=== PATIENT | female | born 1960 | race Caucasian/White ===

== ENCOUNTER → 2019-09-07 10:17 | Outpatient (BNVA) | payer OTHER, SELFPAY | PROVIDERS: PCP Nurse Practitioner Family; Visit Provider Nurse Practitioner Family | DX: Z00.00 Encounter for general adult medical examination without abnormal findings (principal); Z13.1 Encounter for screening for diabetes mellitus; Z13.220 Encounter for screening for lipoid disorders; Z12.39 Encounter for other screening for malignant neoplasm of breast | CPT/HCPCS: 80048; 80061 ==

== ENCOUNTER → 2020-01-12 09:43 | Outpatient (BNVA) | payer OTHER, SELFPAY | PROVIDERS: PCP Nurse Practitioner Family; Visit Provider Nurse Practitioner Family | DX: E78.5 Hyperlipidemia, unspecified (principal); Z51.81 Encounter for therapeutic drug level monitoring | CPT/HCPCS: 80053; 80061; 82550 ==

== ENCOUNTER → 2020-09-04 11:08 | Outpatient (BNVA) | payer OTHER, SELFPAY | PROVIDERS: PCP Nurse Practitioner Family; Visit Provider Specialist | DX: S52.502A Unspecified fracture of the lower end of left radius, initial encounter for closed fracture (principal); M25.532 Pain in left wrist; X58.XXXA Exposure to other specified factors, initial encounter | CPT/HCPCS: 73110 ==

== ENCOUNTER → 2020-09-12 08:21 | Outpatient (BNVA) | payer OTHER, SELFPAY | PROVIDERS: PCP Nurse Practitioner Family; Visit Provider Nurse Practitioner Family | DX: E78.5 Hyperlipidemia, unspecified (principal); Z51.81 Encounter for therapeutic drug level monitoring | CPT/HCPCS: 80053; 80061 ==

== ENCOUNTER → 2020-09-18 08:28 | Outpatient (BNVA) | payer OTHER, SELFPAY | PROVIDERS: PCP Nurse Practitioner Family; Visit Provider Nurse Practitioner Family | DX: M65.4 Radial styloid tenosynovitis [de Quervain] (principal); Z51.81 Encounter for therapeutic drug level monitoring; M25.50 Pain in unspecified joint | CPT/HCPCS: 80053; 86038; 86140; 86431 ==

== ENCOUNTER → 2020-10-13 13:25 | Outpatient (BNVA) | payer OTHER, SELFPAY | PROVIDERS: PCP Nurse Practitioner Family; Visit Provider Podiatrist Foot & Ankle Surgery | DX: M25.572 Pain in left ankle and joints of left foot (principal); M25.571 Pain in right ankle and joints of right foot | CPT/HCPCS: 73630 ==

== ENCOUNTER 2020-10-23 13:32 | Outpatient (CLI) | payer OTHER, SELFPAY ==
--- NOTE | 2020-10-23 14:15 | US_ITS ---
WS: [id number] THYROID ULTRASOUND (TI-RADS CRITERIA) History: Nontoxic goiter.. Technique: Ultrasound examination of the thyroid and adjacent soft tissues is performed. FINDINGS: Right lobe: 4.5 cm x 1.6 cm x 1.3 cm. Volume: 5.0 cm3. Normal size gland. There are a few scattered hypodensities which are probably colloid cyst. There is an additional hypoechoic nodule along the inferior thyroid. This may be external to the thyroid. Left lobe: 4.0 cm x 1.5 cm x 0.9 cm. Volume: 2.7 cm3. Normal size and echotexture. No significant or dominant nodules are present. Isthmus: 0.3 cm. NODULE: 1, inferior RIGHT Size: 0.9 x 0.7 x 1.1 cm Location: Inferior RIGHT Composition: Solid/almost completely solid (2) Echogenicity: Hypoechoic (2) Shape: Not taller than wide (0) Margins: Smooth (0) Echogenic foci: 0 ACR TI-RADS total points: 4 ACR TI-RADS risk category: TR4 4 US/US thyroid [id number] Impression: TR4 Recommendation:Follow-up ultrasound in one, 2, 3 and 5 years. If thyroid nodule(s) change on follow-up examinations the recommendations will be altered as necessary.
== END 2020-10-23 13:33 | disposition home or self-care (01) ==
PROVIDERS: PCP Nurse Practitioner Family; Visit Provider Nurse Practitioner Family
DX: E04.9 Nontoxic goiter, unspecified (principal)
CPT/HCPCS: 76536

== ENCOUNTER → 2020-11-16 09:59 | Outpatient (BNVA) | payer OTHER, SELFPAY | PROVIDERS: PCP Nurse Practitioner Family; Referring Provider Nurse Practitioner Family; Visit Provider Internal Medicine | DX: E04.1 Nontoxic single thyroid nodule (principal); E21.3 Hyperparathyroidism, unspecified; E83.52 Hypercalcemia; Z78.0 Asymptomatic menopausal state | CPT/HCPCS: 99204 ==

== ENCOUNTER → 2020-11-21 08:29 | Outpatient (BNVA) | payer OTHER, SELFPAY | PROVIDERS: PCP Nurse Practitioner Family; Visit Provider Internal Medicine | DX: E83.52 Hypercalcemia (principal); E04.1 Nontoxic single thyroid nodule | CPT/HCPCS: 82310; 83970 ==

== ENCOUNTER → 2021-02-20 08:38 | Outpatient (BNVA) | payer OTHER, SELFPAY | PROVIDERS: PCP Nurse Practitioner Family; Visit Provider Podiatrist Foot & Ankle Surgery | DX: M19.072 Primary osteoarthritis, left ankle and foot (principal) | CPT/HCPCS: 73630 ==

== ENCOUNTER 2021-03-12 08:00 | Outpatient (CLI) | payer OTHER, SELFPAY ==
--- NOTE | 2021-03-12 08:00 | MR_ITS ---
WS: [id number] MRI LEFT FOOT with and without CONTRAST. COMPARISON: LEFT foot radiograph 02/20/2021 Multiplanar, multisequence imaging is performed with and without contrast. Sagittal and axial T1 fat sat sequences post-MultiHance 20 cc IV. Marker is placed in the area of pain which corresponds to the second metatarsal head. No marrow edema or fracture. No healing fracture. Cortex and medullary portion of the bone are intact. Subchondral c yst versus erosion measuring 5.2 mm at the base of the second metatarsal. There is edema between the intermediate cuneiform and proximal second metatarsal. Probably related to arthritis. No significant amount of fluid. There is an additional subchondral cyst or erosion involving the base of the third m etatarsal. The remaining proximal metatarsals are negative. There is significant osteophyte formation and bone hypertrophy along the dorsal surface of the midfoo t in the area of soft tissue edema and marrow edema. On the postcontrast imaging there is some very mild enhancement at the second tarsometatarsal articul ation. MR/MR foot LT wo/w con [id number] IMPRESSION: 1. Degenerative changes in the midfoot with joint space narrowing, subchondral cystic changes and cortical erosions and hypertrophic bone formation. Inflamma tory changes with mild enhancement are most significant between the cuneiform i ntermedius and proximal second metatarsal. Smaller erosion or subchondral cyst involving the proximal third metatarsal. 2. No fractures.
[2021-03-12] MEDS: gadobenate dimeglumine 20 mL vial IV (09:43)
== END 2021-03-12 08:01 | disposition home or self-care (01) ==
LOC: RADSHAW 08:02
PROVIDERS: PCP Nurse Practitioner Family; Visit Provider Podiatrist Foot & Ankle Surgery
DX: M79.672 Pain in left foot (principal)
CPT/HCPCS: 73720; A9577

== ENCOUNTER 2021-04-10 10:27 | Outpatient (CLI) | payer OTHER, SELFPAY ==
--- NOTE | 2021-04-10 11:22 | XR_ITS ---
WS: [id number] SCREENING DEXA SCAN [employer] CLINICAL INFORMATION: post menopausal COMPARISON: None. FINDINGS: The L1-L4 bone mineral density measures 1.344 g/cm2. This corresponds to a T score score of 1.4 and Z score of 1.6. Left femoral neck bone mineral density measures 0.990 g/cm2. This corresponds to a T score of -0.1 an d Z score of 0.0. Right femoral neck bone mineral density measures 0.945 g/cm2. This corresponds to a T score -0.5of an d Z score of -0.3. Mean femoral neck bone mineral density measures 0.968 g/cm2. This corresponds to a T score of -0.3 an d Z score of -0.1. XR/XR DEXA axial skeleton* [id number] IMPRESSION: Normal bone mineralization. Patient's FRAX calculated 10 year probability for major osteoporotic fracture i s 13.4 % and osteoporotic hip fracture is 0.3%.
== END 2021-04-10 10:28 | disposition home or self-care (01) ==
LOC: RAD 10:32
PROVIDERS: PCP Nurse Practitioner Family; Visit Provider Internal Medicine
DX: Z78.0 Asymptomatic menopausal state (principal)
CPT/HCPCS: 77080

== ENCOUNTER → 2021-06-04 09:55 | Outpatient (BNVA) | payer OTHER, SELFPAY | PROVIDERS: PCP Nurse Practitioner Family; Visit Provider Internal Medicine | DX: E78.5 Hyperlipidemia, unspecified (principal) | CPT/HCPCS: 80053; 80061 ==

== ENCOUNTER → 2021-09-17 10:10 | Outpatient (BNVA) | payer OTHER, SELFPAY | PROVIDERS: PCP Nurse Practitioner Family; Visit Provider Internal Medicine | DX: E83.52 Hypercalcemia (principal) | CPT/HCPCS: 82310; 83970 ==

== ENCOUNTER → 2021-10-12 11:33 | Outpatient (BNVA) | payer OTHER, SELFPAY | PROVIDERS: PCP Nurse Practitioner Family; Visit Provider Nurse Practitioner Family | DX: E04.1 Nontoxic single thyroid nodule (principal); R03.0 Elevated blood-pressure reading, without diagnosis of hypertension | CPT/HCPCS: 80053; 84443 ==

== ENCOUNTER 2021-11-16 10:40 | Outpatient (CLI) | payer OTHER, SELFPAY ==
--- NOTE | 2021-11-16 11:00 | US_ITS ---
WS: [id number] THYROID ULTRASOUND (TI-RADS CRITERIA) History: Follow-up nodules.. Technique: Ultrasound examination of the thyroid and adjacent soft tissues is performed. FINDINGS: Right lobe: 5.0 cm x 1.3 cm x 1.2 cm. Volume: 4.1 cm3. Normal size gland. Dominant nodules hypoechoic in the inferior pole. There are a few scattered small hypoechoic colloid cysts. Lymph nodes: None. NODULE: Inferior, RIGHT. Size: 0.8 x 0.7 x 1.3 cm. Location: Inferior RIGHT Composition: Solid/almost completely solid (2) Echogenicity: Hypoechoic (2) Shape: Not taller than wide (0) Margins: Smooth (0) Echogenic foci: None (0) ACR TI-RADS total points: 4 ACR TI-RADS risk category: TR4 Left lobe: 5.1 cm x 1.4 cm x 1.2 cm. Volume: 4.4 cm3. Normal size and echotexture. No significant or dominant nodules are present. Subcentimeter nodules ar e stable. Lymph nodes: None. Isthmus: 0.2 cm. US/US thyroid [id number] Impression: TR4 Recommendation:Continued yearly follow-up. Today's examination is a 1 year foll ow-up which is stable. Continue to follow-up in 2, 3 and 5 years. If thyroid nodule(s) change on follow-up examinations the recommendations will be altered as necessary.
== END 2021-11-16 10:41 | disposition home or self-care (01) ==
LOC: RAD 10:42
PROVIDERS: PCP Nurse Practitioner Family; Visit Provider Internal Medicine
DX: E04.1 Nontoxic single thyroid nodule (principal)
CPT/HCPCS: 76536

== ENCOUNTER → 2021-12-06 10:07 | Outpatient (BNVA) | payer OTHER, SELFPAY | PROVIDERS: PCP Nurse Practitioner Family; Visit Provider Internal Medicine | DX: E21.0 Primary hyperparathyroidism (principal) | CPT/HCPCS: 82310; 83970 ==

== ENCOUNTER 2022-04-23 13:52 | Outpatient (CLI) | payer OTHER, SELFPAY ==
--- NOTE | 2022-04-23 14:05 | XR_ITS ---
WS: [email or web address] Exam: XR chest 2V* [id number] Date/Time of Exam: 04/23/2022 2:13 PM Reason For Exam: J20.8 - Acute bronchitis due to other specified organisms No priors. The lungs are fully expanded. Areas of plaque atelectasis in the lingula. Normal cardiomediastinal si lhouette and regional bony elements. Old fracture of the proximal left humerus. XR/XR chest 2V* [id number] IMPRESSION: 1. Plaque atelectasis in the lingula. No acute cardiopulmonary process.
== END 2022-04-23 13:53 | disposition home or self-care (01) ==
LOC: RAD 13:56
PROVIDERS: PCP Nurse Practitioner Family; Visit Provider Nurse Practitioner Family
DX: J20.8 Acute bronchitis due to other specified organisms (principal); B96.89 Other specified bacterial agents as the cause of diseases classified elsewhere; J98.11 Atelectasis
CPT/HCPCS: 71046

== ENCOUNTER 2022-05-21 10:37 | Outpatient (CLI) | payer OTHER, SELFPAY ==
--- NOTE | 2022-05-21 10:50 | XR_ITS ---
WS: [email or web address] RIGHT KNEE: 3 VIEW(S) TECHNIQUE: AP, oblique(s) and lateral. HISTORY: M25.561 - Pain in right knee COMPARISON: None available. No fracture or dislocation. Moderate narrowing of the medial and patellofemoral compartments. Joint spaces are narrowed with hype rtrophic osteophytes. Mild soft tissue edema anterior to the knee. No soft tissue abnormality. XR/XR knee RT 3V* [id number] IMPRESSION: 1. Moderate narrowing of the medial and patellofemoral compartments from osteo arthritis. 2. No fracture.
== END 2022-05-21 10:38 | disposition home or self-care (01) ==
PROVIDERS: PCP Nurse Practitioner Family; Visit Provider Nurse Practitioner Family
DX: M17.11 Unilateral primary osteoarthritis, right knee
CPT/HCPCS: 73562

== ENCOUNTER → 2022-05-22 09:36 | Outpatient (BNVA) | payer OTHER, SELFPAY | PROVIDERS: PCP Nurse Practitioner Family; Visit Provider Nurse Practitioner Family | DX: E21.0 Primary hyperparathyroidism (principal); E83.52 Hypercalcemia; E04.1 Nontoxic single thyroid nodule; Z79.899 Other long term (current) drug therapy; M17.11 Unilateral primary osteoarthritis, right knee | CPT/HCPCS: 82310; 83970; 84439; 84443 ==

== ENCOUNTER → 2022-09-17 09:21 | Outpatient (BNVA) | payer OTHER, SELFPAY | PROVIDERS: PCP Nurse Practitioner Family; Visit Provider Nurse Practitioner Family | DX: I10 Essential (primary) hypertension (principal); E04.1 Nontoxic single thyroid nodule; E78.2 Mixed hyperlipidemia; E83.52 Hypercalcemia; Z00.00 Encounter for general adult medical examination without abnormal findings | CPT/HCPCS: 80053; 80061; 82310; 83970; 84439; 84443; 84481 ==

== ENCOUNTER 2022-10-22 08:35 | Outpatient (CLI) | payer OTHER, SELFPAY ==
--- NOTE | 2022-10-22 08:42 | MM_ITS ---
WS: [email or web address] BILATERAL SCREENING DIGITAL TOMOSYNTHESIS MAMMOGRAM WITH CAD HISTORY: SCREENING COMPARISON: 10/22/2021 Bilateral CC and MLO views with tomosynthesis and synthetic mammography submitted. Computer aided det ection analyzed. Breast composition: There are scattered areas of fibroglandular density. No suspicious masses, microc alcifications or architectural distortion. MM/[place] [id number] IMPRESSION: BI-RADS: 1-Negative FOLLOW UP: 1 Year Follow-up
== END 2022-10-22 08:36 | disposition home or self-care (01) ==
PROVIDERS: PCP Nurse Practitioner Family; Visit Provider Nurse Practitioner Family
DX: Z12.31 Encounter for screening mammogram for malignant neoplasm of breast (principal)
CPT/HCPCS: 77063; 77067

== ENCOUNTER → 2022-10-28 10:42 | Outpatient (BNVA) | payer OTHER, SELFPAY | PROVIDERS: PCP Nurse Practitioner Family; Visit Provider Specialist | DX: M17.0 Bilateral primary osteoarthritis of knee (principal) | CPT/HCPCS: 73560; 73565 ==

== ENCOUNTER 2022-12-31 08:48 | Outpatient (CLI) | payer OTHER, SELFPAY ==
--- NOTE | 2022-12-31 09:15 | US_ITS ---
WS: [email or web address] ULTRASOUND THYROID TECHNIQUE: Ultrasound of the thyroid. CLINICAL INFORMATION: Thyroid Nodule COMPARISON: 2021 FINDINGS: Thyroid: Right and left thyroid lobes are normal in size and echotexture. Right thyroid lobe: 4.6 cm x 1.1 cm x 1.7 cm Hypoechoic RIGHT thyroid nodule in the mid thyroid measuring 7.3 x 5.6 x 4.6 mm. Additional mixed echogenicity nodule inferior thyroid measuring 15.0 x 8.0 x 8.0 mm A few incidental tiny colloid cysts. Left thyroid lobe: 4.6 cm x 1.6 cm x 1.0 cm. Small subcentimeter nodules LEFT thyroid are stable. Isthmus: 0.2 mm. Cervical lymphadenopathy: None. US/US thyroid [id number] IMPRESSION: 1. No significant changes compared to November 16, 2021 2. Dominant nodule inferior RIGHT thyroid measuring 15.0 x 8.0 x 8.0 mm is unc hanged. Recommend continued annual ultrasound surveillance. 3. Additional bilateral subcentimeter thyroid nodules are stable. 4. A few incidental colloid cysts.
== END 2022-12-31 08:49 | disposition home or self-care (01) ==
PROVIDERS: PCP Nurse Practitioner Family; Visit Provider Internal Medicine
DX: E04.1 Nontoxic single thyroid nodule (principal); E21.0 Primary hyperparathyroidism
CPT/HCPCS: 76536

== ENCOUNTER → 2023-03-12 07:33 | Outpatient (BNVA) | payer OTHER, SELFPAY | PROVIDERS: PCP Nurse Practitioner Family; Visit Provider Podiatrist Foot & Ankle Surgery | DX: M67.472 Ganglion, left ankle and foot (principal) | CPT/HCPCS: 99213 ==

== ENCOUNTER → 2023-04-21 08:52 | Outpatient (BNVA) | payer OTHER, SELFPAY | PROVIDERS: PCP Nurse Practitioner Family; Visit Provider Nurse Practitioner Family | DX: E78.2 Mixed hyperlipidemia (principal); I10 Essential (primary) hypertension; E78.5 Hyperlipidemia, unspecified | CPT/HCPCS: 80053; 80061 ==

== ENCOUNTER 2023-10-14 09:17 | Outpatient (CLI) | payer OTHER, SELFPAY ==
--- NOTE | 2023-10-14 09:25 | XRR_ITS ---
PROCEDURE INFORMATION: Exam: XR Right Hip Exam date and time: 10/14/2023 9:37 AM Age: 63 years old Clinical indication: Hip pain; Right hip; Additional info: M25.551 - pain in right hip TECHNIQUE: Imaging protocol: Radiologic exam of the right hip. Views: 1 view hip with pelvis when performed. COMPARISON: No relevant prior studies available. FINDINGS: Bones/joints: Unremarkable. No acute fracture. No significant arthritic changes. No lytic or sclerotic lesion. Soft tissues: Unremarkable. XR/XR hip RT 2-3V wo/w pel* [id number] IMPRESSION: No acute findings.
== END 2023-10-14 09:18 | disposition home or self-care (01) ==
LOC: RAD 09:18
PROVIDERS: PCP Nurse Practitioner Family; Visit Provider Nurse Practitioner Family
DX: M25.551 Pain in right hip (principal)
CPT/HCPCS: 73502

== ENCOUNTER → 2023-11-10 09:34 | Outpatient (BNVA) | payer OTHER, SELFPAY | PROVIDERS: PCP Nurse Practitioner Family; Visit Provider Internal Medicine | DX: E78.2 Mixed hyperlipidemia (principal); E21.0 Primary hyperparathyroidism | CPT/HCPCS: 80053; 80061; 82310; 83970 ==

== ENCOUNTER 2023-11-20 12:26 | Outpatient (CLI) | payer OTHER, SELFPAY ==
--- NOTE | 2023-11-20 12:41 | XR_ITS ---
WS: [email or web address] Exam: XR lumbar spine 2-3V* [id number] Date/Time of Exam: 11/20/2023 12:56 PM Reason For Exam: M54.50 - Low back pain, unspecified No acute fracture or dislocation. Degenerative vacuum discs noted at L2-3 and L4-5. Degenerative retr olisthesis of L to on L3 of about 7 mm. There is also degenerative anterolisthesis of L3 on L4 of abo ut 4 mm. Facet arthropathy at all levels. Mid and lower thoracic scoliosis with RIGHT convexity. IMPRESSION: 1. Moderately advanced degenerative changes as discussed above. No acute fracture. 2. Degenerative anterolisthesis of L3 on L4 of about 4 mm. Degenerative retrolisthesis of L2 on L3 of about 7 mm.
== END 2023-11-20 12:27 | disposition home or self-care (01) ==
LOC: RAD 12:26
PROVIDERS: PCP Nurse Practitioner Family; Visit Provider Nurse Practitioner Family
DX: M47.896 Other spondylosis, lumbar region; M54.50 Low back pain, unspecified
CPT/HCPCS: 72100

== ENCOUNTER 2023-11-20 12:27 | Outpatient (CLI) | payer OTHER, SELFPAY ==
--- NOTE | 2023-11-20 13:18 | MM_ITS ---
WS: [email or web address] SCREENING DIGITAL TOMOSYNTHESIS MAMMOGRAM WITH CAD HISTORY: SCREEN COMPARISON: 10/22/2022, 10/22/2021 Bilateral CC and MLO with tomosynthesis views submitted. Synthetic mammography reviewed. Computer aid ed detection analyzed. Breast composition: There are scattered areas of fibroglandular density. No suspicious masses, microc alcifications or architectural distortion. IMPRESSION: MM/[place] [id number] BI-RADS: 1-Negative FOLLOW UP: 1 Year Follow-up
--- NOTE | 2023-11-20 13:44 | XR_ITS ---
WS: [email or web address] Exam: XR lumbar spine 2-3V* [id number] Date/Time of Exam: 11/20/2023 1:46 PM Reason For Exam: M54.50 - Low back pain, unspecified No acute fracture or dislocation. Degenerative vacuum discs at L2-3 and L4-5. Facet arthropathy at al l levels. Dextroscoliosis noted. Mild degenerative retrolisthesis of L2 on L3. IMPRESSION: 1. Moderately advanced degenerative changes and and scoliosis. 2. No fracture or malalignment.
== END 2023-11-20 12:28 | disposition home or self-care (01) ==
LOC: RAD 12:28
PROVIDERS: PCP Nurse Practitioner Family; Visit Provider Nurse Practitioner Family
DX: M47.896 Other spondylosis, lumbar region (principal); M41.86 Other forms of scoliosis, lumbar region; M54.50 Low back pain, unspecified; Z12.31 Encounter for screening mammogram for malignant neoplasm of breast
CPT/HCPCS: 72100; 77063; 77067

== ENCOUNTER → 2023-12-04 10:48 | Outpatient (BNVA) | payer OTHER, SELFPAY | PROVIDERS: PCP Nurse Practitioner Family; Visit Provider Internal Medicine | DX: E21.0 Primary hyperparathyroidism (principal); E04.1 Nontoxic single thyroid nodule | CPT/HCPCS: 99214 ==

== ENCOUNTER 2024-09-16 10:14 | Outpatient (CLI) | payer MEDICARE, OTHER, SELFPAY ==
--- NOTE | 2024-09-16 10:22 | XR_ITS ---
WS: [id number] Right shoulder, 2 views, 09/16/2024 Clinical Data: M25.511 - Pain in right shoulder Comparison: None. Findings: No fractures or dislocations are seen. There is a large spur of the lesser tuberosity. There is narro wing of the glenohumeral joint. The AC joint shows minimal narrowing. The adjacent right clavicle, r ight scapula and ribs are normal. The soft tissues are unremarkable. XR/XR shoulder RT min 2V* [id number] Impression: Moderate osteoarthritis of the right glenohumeral joint and minimal osteoarthri tis of the right AC joint.
== END 2024-09-16 10:15 | disposition home or self-care (01) ==
PROVIDERS: PCP Nurse Practitioner Family; Visit Provider Nurse Practitioner Family
DX: M19.011 Primary osteoarthritis, right shoulder (principal); M75.81 Other shoulder lesions, right shoulder; R93.6 Abnormal findings on diagnostic imaging of limbs
CPT/HCPCS: 73030

== ENCOUNTER → 2024-11-22 10:39 | Outpatient (BNVA) | payer MEDICARE, OTHER, SELFPAY | PROVIDERS: PCP Nurse Practitioner Family; Visit Provider Nurse Practitioner Family | DX: E21.0 Primary hyperparathyroidism (principal); E04.1 Nontoxic single thyroid nodule | CPT/HCPCS: 82310; 83970 ==

== ENCOUNTER 2024-11-30 09:41 | Outpatient (CLI) | payer MEDICARE, OTHER, SELFPAY ==
--- NOTE | 2024-11-30 10:00 | MM_ITS ---
WS: [email or web address] BILATERAL 3D TOMOSYNTHESIS DIGITAL SCREENING MAMMOGRAPHY WITH CAD CLINICAL INFORMATION: Z12.39 - Encounter for other screening for malignant neop... HISTORY: Screening mammogram. No current complaints. COMPARISON: 11/20/2023 TECHNIQUE: Bilateral CC and MLO views. FINDINGS: Scattered fibroglandular densities bilaterally. No suspicious focal mass, asymmetry, calcifications, or architectural distortion. No evidence of malignancy. MM/MM scr tomosynthesis [id number] IMPRESSION: DENSITY: There are scattered areas of fibroglandular density. BI-RADS: 1 - Negative. FOLLOW UP: 1 Year Follow-up Recommend return to annual screening mammography.
== END 2024-11-30 09:42 | disposition home or self-care (01) ==
PROVIDERS: PCP Nurse Practitioner Family; Visit Provider Nurse Practitioner Family
DX: Z12.31 Encounter for screening mammogram for malignant neoplasm of breast (principal); R92.323 Mammographic fibroglandular density, bilateral breasts
CPT/HCPCS: 77063; 77067

== ENCOUNTER 2025-05-03 08:39 | Outpatient (CLI) | payer MEDICARE, OTHER, SELFPAY ==
--- NOTE | 2025-05-03 09:00 | US_ITS ---
WS: [email or web address] THYROID ULTRASOUND HISTORY: Follow-up nodules. COMPARISON: 12/31/2022, 11/16/2021, 10/23/2020 Right lobe: 1.2 cm x 1.3 cm x 4.9 cm (w x ap x l). Volume: 3.5 cm3. Normal sized thyroid. There is a hypoechoic nodule in the posterior inferior RIGHT lobe. This is a well-circumscribed nodule which is slightly hypoechoic to the adjacent thyroid parenchyma. Nodule measures 0.9 x 0.9 x 1.5 cm. No echogenic foci. No increase in size or appearance since 10/23/2020. There are a few additional scattered colloid cysts. Left lobe: 1.6 cm x 1.1 cm x 4.4 cm (w x ap x l). Volume: 3.6 cm3. Hypoechoic nodule in the mid LEFT thyroid measures 0.8 x 0.5 x 0.9 cm. No echogenic foci or increased vascularity. This is a well-circumscribed nodule with mixed echogenicity. No cystic component. Similar in appearance compared to 11/16/2021. Isthmus: 0.2 cm. US/US thyroid [id number] IMPRESSION: 1. TI-RADS 4; RIGHT thyroid nodule. This nodule has been previously described and is stable since 2020. Recommend follow-up ultrasound in 2 years as per the TI-RADS criteria recommendations. 2. TI-RADS 2; LEFT thyroid nodule. No follow-up necessary.
--- NOTE | 2025-05-03 14:30 | XR_ITS ---
WS: [email or web address] SCREENING DEXA SCAN [employer] CLINICAL INFORMATION: see below COMPARISON: 2020 FINDINGS: The L1-L4 bone mineral density measures 1.383 g/cm2. This corresponds to a T score score of 1.7 and Z score of 2.2. Left femoral neck bone mineral density measures 0.899 g/cm2. This corresponds to a T score of -0.9 and Z score of -0.4. Right femoral neck bone mineral density measures 0.875 g/cm2. This corresponds to a T score -1.1of and Z score of -0.6. Mean femoral neck bone mineral density measures 0.887 g/cm2. This corresponds to a T score of -1.0 and Z score of -0.5. XR/XR DEXA axial skeleton* [id number] IMPRESSION: Normal bone mineralization lumbar spine. Osteopenia femoral necks. Patient's FRAX calculated 10 year probability for major osteoporotic fracture i s 15.0% and osteoporotic hip fracture is 0.8%.
== END 2025-05-03 08:40 | disposition home or self-care (01) ==
LOC: RAD 08:42
PROVIDERS: PCP Nurse Practitioner Family; Visit Provider Internal Medicine
DX: E83.52 Hypercalcemia (principal); E04.1 Nontoxic single thyroid nodule; E21.0 Primary hyperparathyroidism; Z78.0 Asymptomatic menopausal state; M85.88 Other specified disorders of bone density and structure, other site
CPT/HCPCS: 76536; 77080

== ENCOUNTER → 2025-05-16 08:46 | Outpatient (BNVA) | payer MEDICARE, OTHER, SELFPAY | PROVIDERS: PCP Nurse Practitioner Family; Visit Provider Nurse Practitioner Family | DX: E83.52 Hypercalcemia (principal); R63.5 Abnormal weight gain; E04.1 Nontoxic single thyroid nodule; E78.2 Mixed hyperlipidemia | CPT/HCPCS: 80053; 80061; 82306; 82310; 82533; 83970 ==

== ENCOUNTER → 2025-05-31 11:25 | Outpatient (BNVA) | payer MEDICARE, OTHER, SELFPAY | PROVIDERS: PCP Nurse Practitioner Family; Visit Provider Internal Medicine | DX: E21.0 Primary hyperparathyroidism (principal); E04.1 Nontoxic single thyroid nodule | CPT/HCPCS: 99214 ==